=== PATIENT | female | born 1945 | race Caucasian/White ===

== ENCOUNTER → 2018-07-07 10:05 | Outpatient (CLI) | payer MEDICARE, OTHER, SELFPAY | PROVIDERS: PCP Family Medicine; Visit Provider Orthopaedic Surgery | DX: M25.562 Pain in left knee (principal); Z53.9 Procedure and treatment not carried out, unspecified reason ==

== ENCOUNTER 2018-09-27 07:30 | Outpatient (RCR) | payer MEDICARE, OTHER, SELFPAY ==
--- NOTE | 2018-08-23 16:12 | PT.OIE ---
Current Diagnoses Urge incontinence (08/23/18) Feeling of incomplete bladder emptying (08/23/18) Provider Visit Care Team Role Provider Type Steven Flynn DO Primary Care Provider Non-Staff Specialty: Family Practice Address: [address], [place], [address] Email: Suzette Hernandez MD Attending Provider Non-Staff Specialty: Urology Address: [address], [place], [address] Email: Physical Therapy Initial Evaluation PT-OP-A Visit Information Start: 08/23/18 13:02 Freq: Status: Active Protocol: Document 08/23/18 10:00 BS (Rec: 08/23/18 15:50 BS [email or web address]) Out-Patient Physical Therapy Visit Information Visit Information Visit Type Initial Evaluation Visit Start Time 09:45 Visit Stop Time 10:30 Total Visit Minutes 45 Visit Number 1 Evaluation Information Evaluation Date 08/23/18 PT-OP-B Current Condition Start: 08/23/18 13:02 Freq: Status: Active Protocol: Document 08/23/18 10:00 BS (Rec: 08/23/18 15:50 BS [email or web address]) Current Condition History of Current Condition Onset Date 20 years ago Current Complaints leaking/urinary incontinence History of Current Condition Pt is a 73 year old female who presents with complaints of daily incontinence/leaking. Pt reports that she has had issues with urinary incontinence for around 20 years and that is has progressively worsened over the years. She reports up to 5 leakage episodes per day and currently wears depends while sleeping due to leakage. Bladder interstim device has been utilized for the last 6-9 months without any improvements, per pt report. Pt denied burning with urination but reports frequent UTIs, 3 in the past year with the latest a couple months ago. Pt states she performs self-catheterization for incomplete empyting when needed. Prior Treatments and Tests Pt reports she tried pelvic floor physical therapy greater than 10 years ago but that she did not notice an improvement in urinary incontinence. She has attempted kegals since but is not sure she is doing them correctly. Treatment Goals Patient/Caregiver Goals reduce leaking episodes, learn how to correctly perform kegals Prior Functional Status Baseline Function- ADL's Independent Baseline Function- Mobility Modified Independent Baseline Function- Gait Independent, use of R SPC Current Functional Impairments (Reported) Functional Limitations- Mobility/Gait Pt ambulates in clinic with use of R single point cane with an antalgic gait pattern and reduced step length with RLE. Pt reports she is scheduled for a L knee replacement in September. PT-OP-C Subjective Start: 08/23/18 13:02 Freq: Status: Active Protocol: Document 08/23/18 10:00 BS (Rec: 08/23/18 15:50 BS [email or web address]) Patient Questionnaires Pelvic Pain and Urgency/Frequency Patient Symptom Scale Pelvic Pain Score 2 OP-PT Pain Assessment Comments Pain Comments Pt denies pain associated with urination. Denies pelvic pain with internal assessment. PT-OP-I Pelvic Floor Start: 08/23/18 13:02 Freq: Status: Active Protocol: Document 08/23/18 10:00 BS (Rec: 08/23/18 15:50 BS [email or web address]) Pelvic Floor Assessment Urine Pelvic Floor Surgery Yes: [place] sling 2007, sling removal 2016 Urinary Symptoms Dysuria Urge Sensation Prolapse Incomplete Emptying Other Urinary Symptoms occasional difficulty initiating urine stream. Triggered voiding everytime pt drives into garage. Leakage Size Large Leakage Cause Cough Exercise Lifting Sneeze Urge Leaks Per Day 0-5 Voiding Frequency 3-6x/day Nocturia 1-2/night Urine Pad Type Maxi Pad Depends Pelvic Clock Pelvic Clock Other No tenderness with pelvic floor assessment. With kegals, posterior pelvic floor activation greatest with decreased neuromuscular activation of anterior and lateral pelvic floor musculature. Minimal levator ani activation with greatest muscle activatin of sphincteric layer. Prolapse Cystocele Grade 3 Rectocele Grade 2 Contraction Ability Voluntary Contraction Weak Voluntary Relaxation Weak Manual Muscle Testing Left 2 Manual Muscle Testing Right 2 Manual Muscle Testing Anterior 2 Manual Muscle Testing Posterior 3 Muscle Endurance (Seconds) 5 PT-OP-Q Treatments Start: 08/23/18 15:00 Freq: Status: Active Protocol: Document 08/23/18 10:00 BS (Rec: 08/23/18 15:50 BS [email or web address]) Neuro Re-Education Treatment Other Activities 1 Details Pelvic Floor Contractions: work 5 sec, relax 5 sec Reps/Duration 2x15 Comments verbal cueing for pelvic floor contraction strategies and to disengage abdominals. Self-Care/Home Management Treatment Education Other Education Pt provided education regarding correct technique for pelvic floor/kegel exercises, urinary urge suppresion, and voiding behavioral modifications. PT-OP-T Assessment and Plan Start: 08/23/18 13:02 Freq: Status: Active Protocol: Document 08/23/18 10:00 BS (Rec: 08/23/18 15:50 BS [email or web address]) Physical Therapy Assessment Rehab Potential Rehabilitation Potential Fair Evaluation Complexity Number of Personal Factors/Comorbidities 1-2 Number of Body Systems Impaired 1-2 Clinical Presentation at Evaluation Stable Impairments Impairments Activity Tolerance Functional Activities Functional Mobility Strength Goals Three Short Term Goal (STG) Pt to be able to successfully suppress urinary urge utilizing pelvic floor contractions and diaphragmatic breathing techniques to prevent an episode of incontinence. STG Duration 4 weeks Two Short Term Goal (STG) Pt will become independent with an initial pelvic floor HEP. STG Duration 4 Chain Mender Goal (LTG) Pt will report feeling confident with pelvic floor exercises and demo proper technique without over- activation of abdominals. LTG Duration 8-10 One Impairment Urinary Frequency Short Term Goal (STG) Pt will report a reduction <5 episodes of urinary incontinence. STG Duration 4 Penitentiary Goal (LTG) Pt will be able to sleep throughout the night without urinary leakage. LTG Duration 8-10 Assessment Summary Assessment Pt presents with combination stress/urge urinary incontinence and deficits in pelvic floor muscular activation/strength impacting her ability to complete ADLs and sleep without urinary leakage. Pt benefits from skilled pelvic floor physical therapy to address the above impairments, reduce urge/ incontinence frequency, and improve pelvic floor strength. Physical Therapy Plan Frequency and Duration Frequency of Treatment 1-2x/Week Duration of Treatment 8-10weeks Plan of Care Start Date 08/23/18 Plan of Care End Date 11/01/18 Therapeutic Interventions Therapeutic Interventions Home Exercise Program Manual Therapy Neuromuscular Re-education Patient/Caregiver Education Self-Care/Home Management Soft Tissue Mobilization Therapeutic Activities Therapeutic Exercises Next Visit Focus/Plan Next Note Type Treatment Note Next Visit Plan sEMG with quick flicks and longer endurance contractions. Begin supine pelvic floor exercises.
--- NOTE | 2018-08-23 16:16 | PT.OPPOC ---
Current Diagnoses Urge incontinence (08/23/18) Feeling of incomplete bladder emptying (08/23/18) Provider Visit Care Team Role Provider Type Steven Flynn DO Primary Care Provider Non-Staff Specialty: Family Practice Address: [address] [facility] [address], [place], [address] Email: Suzette Hernandez MD Attending Provider Non-Staff Specialty: Urology Address: [address], [place], [address] Email: Plan Of Care PT-OP-T Assessment and Plan Start: 08/23/18 13:02 Freq: Status: Active Protocol: Document 08/23/18 10:00 BS (Rec: 08/23/18 15:50 BS [email or web address]) Physical Therapy Assessment Rehab Potential Rehabilitation Potential Fair Evaluation Complexity Number of Personal Factors/Comorbidities 1-2 Number of Body Systems Impaired 1-2 Clinical Presentation at Evaluation Stable Impairments Impairments Activity Tolerance Functional Activities Functional Mobility Strength Goals Three Short Term Goal (STG) Pt to be able to successfully suppress urinary urge utilizing pelvic floor contractions and diaphragmatic breathing techniques to prevent an episode of incontinence. STG Duration 4 weeks Two Short Term Goal (STG) Pt will become independent with an initial pelvic floor HEP. STG Duration 4 Programming Internship Goal (LTG) Pt will report feeling confident with pelvic floor exercises and demo proper technique without over- activation of abdominals. LTG Duration 8-10 One Impairment Urinary Frequency Short Term Goal (STG) Pt will report a reduction <5 episodes of urinary incontinence. STG Duration 4 Programming Internship Goal (LTG) Pt will be able to sleep throughout the night without urinary leakage. LTG Duration 8-10 Assessment Summary Assessment Pt presents with combination stress/urge urinary incontinence and deficits in pelvic floor muscular activation/strength impacting her ability to complete ADLs and sleep without urinary leakage. Pt benefits from skilled pelvic floor physical therapy to address the above impairments, reduce urge/ incontinence frequency, and improve pelvic floor strength. Physical Therapy Plan Frequency and Duration Frequency of Treatment 1-2x/Week Duration of Treatment 8-10weeks Plan of Care Start Date 08/23/18 Plan of Care End Date 11/01/18 Therapeutic Interventions Therapeutic Interventions Home Exercise Program Manual Therapy Neuromuscular Re-education Patient/Caregiver Education Self-Care/Home Management Soft Tissue Mobilization Therapeutic Activities Therapeutic Exercises Next Visit Focus/Plan Next Note Type Treatment Note Next Visit Plan sEMG with quick flicks and longer endurance contractions. Begin supine pelvic floor exercises. Plan of Care Dates Plan of Care Start Date 08/23/18 Plan of Care End Date 11/01/18 Please Sign and Return: I have reviewed this Plan of Care and certify that the skilled therapy services above are required to meet the patient?s needs. Physician Signature Date Printed Name and Credentials Clinical Instructor Signature Printed Name and Credentials
--- NOTE | 2018-09-06 13:06 | PT.OTN ---
Current Diagnoses Urge incontinence (09/06/18) Feeling of incomplete bladder emptying (09/06/18) Physical Therapy Treatment Note PT-OP-A Visit Information Start: 08/23/18 13:02 Freq: Status: Active Protocol: Document 09/06/18 09:45 AMB (Rec: 09/06/18 13:06 AMB [email or web address]) Out-Patient Physical Therapy Visit Information Visit Information Visit Type Treatment Note Visit Start Time 09:45 Visit Stop Time 10:30 Total Visit Minutes 45 Visit Number 2 PT-OP-B Current Condition Start: 08/23/18 13:02 Freq: Status: Active Protocol: Document 08/23/18 10:00 BS (Rec: 08/23/18 15:50 BS [email or web address]) Current Condition History of Current Condition Onset Date 20 years ago Current Complaints leaking/urinary incontinence History of Current Condition Pt is a 73 year old female who presents with complaints of daily incontinence/leaking. Pt reports that she has had issues with urinary incontinence for around 20 years and that is has progressively worsened over the years. She reports up to 5 leakage episodes per day and currently wears depends while sleeping due to leakage. Bladder interstim device has been utilized for the last 6-9 months without any improvements, per pt report. Pt denied burning with urination but reports frequent UTIs, 3 in the past year with the latest a couple months ago. Pt states she performs self-catheterization for incomplete empyting when needed. Prior Treatments and Tests Pt reports she tried pelvic floor physical therapy greater than 10 years ago but that she did not notice an improvement in urinary incontinence. She has attempted kegals since but is not sure she is doing them correctly. Treatment Goals Patient/Caregiver Goals reduce leaking episodes, learn how to correctly perform kegals Prior Functional Status Baseline Function- ADL's Independent Baseline Function- Mobility Modified Independent Baseline Function- Gait Independent, use of R SPC Current Functional Impairments (Reported) Functional Limitations- Mobility/Gait Pt ambulates in clinic with use of R single point cane with an antalgic gait pattern and reduced step length with RLE. Pt reports she is scheduled for a L knee replacement in September. PT-OP-C Subjective Start: 08/23/18 13:02 Freq: Status: Active Protocol: Document 09/06/18 09:45 AMB (Rec: 09/06/18 13:06 AMB [email or web address]) OP-PT Subjective Patient Comments Patient Comments Nikki reports she has been trying to do the exercises, thinking about which muscles to use to help. The interstim device is still off. She has not been self cathing, but might try to make sure that there isn't too much residual. Getting knee replacement in a little over 2 weeks. PT-OP-I Pelvic Floor Start: 08/23/18 13:02 Freq: Status: Active Protocol: Document 08/23/18 10:00 BS (Rec: 08/23/18 15:50 BS [email or web address]) Pelvic Floor Assessment Urine Pelvic Floor Surgery Yes: [place] sling 2007, sling removal 2016 Urinary Symptoms Dysuria Urge Sensation Prolapse Incomplete Emptying Other Urinary Symptoms occasional difficulty initiating urine stream. Triggered voiding everytime pt drives into garage. Leakage Size Large Leakage Cause Cough Exercise Lifting Sneeze Urge Leaks Per Day 0-5 Voiding Frequency 3-6x/day Nocturia 1-2/night Urine Pad Type Maxi Pad Depends Pelvic Clock Pelvic Clock Other No tenderness with pelvic floor assessment. With kegals, posterior pelvic floor activation greatest with decreased neuromuscular activation of anterior and lateral pelvic floor musculature. Minimal levator ani activation with greatest muscle activatin of sphincteric layer. Prolapse Cystocele Grade 3 Rectocele Grade 2 Contraction Ability Voluntary Contraction Weak Voluntary Relaxation Weak Manual Muscle Testing Left 2 Manual Muscle Testing Right 2 Manual Muscle Testing Anterior 2 Manual Muscle Testing Posterior 3 Muscle Endurance (Seconds) 5 PT-OP-Q Treatments Start: 08/23/18 15:00 Freq: Status: Active Protocol: Document 09/06/18 09:45 AMB (Rec: 09/06/18 13:06 AMB [email or web address]) Therapeutic Exercises Supine Exercises 1 Supine Exercise Name hip add with PF contract Resistance ball Comments hooklying Neuro Re-Education Treatment Other Activities 3 Details sEMG with quick contract and 10 sec hold Comments 25 reps quick contract, 20 for long holds 2 Details PF contract with NMES 10 sec hold Comments 10 reps PT-OP-T Assessment and Plan Start: 08/23/18 13:02 Freq: Status: Active Protocol: Document 09/06/18 09:45 AMB (Rec: 09/06/18 13:06 AMB [email or web address]) Physical Therapy Assessment Assessment Summary Assessment Nikki has better buy in today with pelvic floor exercises, although the urge component to her incontinence is difficult , as driving into her garage is a large trigger for her. Physical Therapy Plan Next Visit Focus/Plan Next Note Type Treatment Note Next Visit Plan Progress to seated as able. Continue urge education.
--- NOTE | 2018-09-13 16:21 | PT.OTN ---
Current Diagnoses Urge incontinence (09/13/18) Feeling of incomplete bladder emptying (09/13/18) Physical Therapy Treatment Note PT-OP-A Visit Information Start: 08/23/18 13:02 Freq: Status: Active Protocol: Document 09/13/18 10:35 BS (Rec: 09/13/18 10:22 BS [email or web address]) Out-Patient Physical Therapy Visit Information Visit Information Visit Type Treatment Note Visit Start Time 09:50 Visit Stop Time 10:30 Total Visit Minutes 40 Visit Number 3 PT-OP-B Current Condition Start: 08/23/18 13:02 Freq: Status: Active Protocol: Document 08/23/18 10:00 BS (Rec: 08/23/18 15:50 BS [email or web address]) Current Condition History of Current Condition Onset Date 20 years ago Current Complaints leaking/urinary incontinence History of Current Condition Pt is a 73 year old female who presents with complaints of daily incontinence/leaking. Pt reports that she has had issues with urinary incontinence for around 20 years and that is has progressively worsened over the years. She reports up to 5 leakage episodes per day and currently wears depends while sleeping due to leakage. Bladder interstim device has been utilized for the last 6-9 months without any improvements, per pt report. Pt denied burning with urination but reports frequent UTIs, 3 in the past year with the latest a couple months ago. Pt states she performs self-catheterization for incomplete empyting when needed. Prior Treatments and Tests Pt reports she tried pelvic floor physical therapy greater than 10 years ago but that she did not notice an improvement in urinary incontinence. She has attempted kegals since but is not sure she is doing them correctly. Treatment Goals Patient/Caregiver Goals reduce leaking episodes, learn how to correctly perform kegals Prior Functional Status Baseline Function- ADL's Independent Baseline Function- Mobility Modified Independent Baseline Function- Gait Independent, use of R SPC Current Functional Impairments (Reported) Functional Limitations- Mobility/Gait Pt ambulates in clinic with use of R single point cane with an antalgic gait pattern and reduced step length with RLE. Pt reports she is scheduled for a L knee replacement in September. PT-OP-C Subjective Start: 08/23/18 13:02 Freq: Status: Active Protocol: Document 09/13/18 10:35 BS (Rec: 09/13/18 10:22 BS [id number]) OP-PT Subjective Patient Comments Patient Comments Pt states that pulling into garage continues to be a trigger and she has been trying to void before leaving driving home. She has been doing exercises once per day. PT-OP-I Pelvic Floor Start: 08/23/18 13:02 Freq: Status: Active Protocol: Document 08/23/18 10:00 BS (Rec: 08/23/18 15:50 BS [email or web address]) Pelvic Floor Assessment Urine Pelvic Floor Surgery Yes: [place] sling 2007, sling removal 2016 Urinary Symptoms Dysuria Urge Sensation Prolapse Incomplete Emptying Other Urinary Symptoms occasional difficulty initiating urine stream. Triggered voiding everytime pt drives into garage. Leakage Size Large Leakage Cause Cough Exercise Lifting Sneeze Urge Leaks Per Day 0-5 Voiding Frequency 3-6x/day Nocturia 1-2/night Urine Pad Type Maxi Pad Depends Pelvic Clock Pelvic Clock Other No tenderness with pelvic floor assessment. With kegals, posterior pelvic floor activation greatest with decreased neuromuscular activation of anterior and lateral pelvic floor musculature. Minimal levator ani activation with greatest muscle activatin of sphincteric layer. Prolapse Cystocele Grade 3 Rectocele Grade 2 Contraction Ability Voluntary Contraction Weak Voluntary Relaxation Weak Manual Muscle Testing Left 2 Manual Muscle Testing Right 2 Manual Muscle Testing Anterior 2 Manual Muscle Testing Posterior 3 Muscle Endurance (Seconds) 5 PT-OP-Q Treatments Start: 08/23/18 15:00 Freq: Status: Active Protocol: Document 09/13/18 10:35 BS (Rec: 09/13/18 16:17 BS [email or web address]) Therapeutic Exercises Supine Exercises 1 Supine Exercise Name hip add with PF contract Resistance ball between knees Reps/Minutes 2x12 Comments hooklying Neuro Re-Education Treatment Other Activities 3 Details Quick flicks, 5W 10R Comments 2x15 quick flicks 1x15, 1x20 5sec contract, 10 sec relax Seated no sEMG today. Self-Care/Home Management Treatment Education Other Education urge supression techniques and scheduled voiding. PT-OP-T Assessment and Plan Start: 08/23/18 13:02 Freq: Status: Active Protocol: Document 09/13/18 10:35 BS (Rec: 09/13/18 10:22 BS [id number]) Physical Therapy Assessment Assessment Summary Assessment Pt forgot to bring sensor today so pelvic floor exercises completed without use of biofeedback. Pt tolerated exercises well in sitting position but continues to have difficulty with long hold (5sec) pelvic contractions. Physical Therapy Plan Next Visit Focus/Plan Next Note Type Treatment Note Next Visit Plan Continue with quick flicks and long hold pelvic contractions in sitting. Focus on endurance contractions.
--- NOTE | 2018-09-20 09:54 | PT.OTN ---
Current Diagnoses Urge incontinence (09/20/18) Feeling of incomplete bladder emptying (09/20/18) Physical Therapy Treatment Note PT-OP-A Visit Information Start: 08/23/18 13:02 Freq: Status: Active Protocol: Document 09/20/18 09:48 BS (Rec: 09/20/18 09:07 BS [id number]) Out-Patient Physical Therapy Visit Information Visit Information Visit Type Treatment Note Visit Start Time 09:00 Visit Stop Time 09:45 Total Visit Minutes 45 Visit Number 4 PT-OP-B Current Condition Start: 08/23/18 13:02 Freq: Status: Active Protocol: Document 08/23/18 10:00 BS (Rec: 08/23/18 15:50 BS [id number]) Current Condition History of Current Condition Onset Date 20 years ago Current Complaints leaking/urinary incontinence History of Current Condition Pt is a 73 year old female who presents with complaints of daily incontinence/leaking. Pt reports that she has had issues with urinary incontinence for around 20 years and that is has progressively worsened over the years. She reports up to 5 leakage episodes per day and currently wears depends while sleeping due to leakage. Bladder interstim device has been utilized for the last 6-9 months without any improvements, per pt report. Pt denied burning with urination but reports frequent UTIs, 3 in the past year with the latest a couple months ago. Pt states she performs self-catheterization for incomplete empyting when needed. Prior Treatments and Tests Pt reports she tried pelvic floor physical therapy greater than 10 years ago but that she did not notice an improvement in urinary incontinence. She has attempted kegals since but is not sure she is doing them correctly. Treatment Goals Patient/Caregiver Goals reduce leaking episodes, learn how to correctly perform kegals Prior Functional Status Baseline Function- ADL's Independent Baseline Function- Mobility Modified Independent Baseline Function- Gait Independent, use of R SPC Current Functional Impairments (Reported) Functional Limitations- Mobility/Gait Pt ambulates in clinic with use of R single point cane with an antalgic gait pattern and reduced step length with RLE. Pt reports she is scheduled for a L knee replacement in September. PT-OP-C Subjective Start: 08/23/18 13:02 Freq: Status: Active Protocol: Document 09/20/18 09:48 BS (Rec: 09/20/18 09:07 BS [id number]) OP-PT Subjective Patient Comments Patient Comments Pt admits that she hasn't been consistent with HEP this last week as she was busy with a conference. She states she is discouraged with progress and continues to have urinary incontinence during the night. She wants to know of other options or healthcare providers that may be able to help her. PT-OP-I Pelvic Floor Start: 08/23/18 13:02 Freq: Status: Active Protocol: Document 08/23/18 10:00 BS (Rec: 08/23/18 15:50 BS [id number]) Pelvic Floor Assessment Urine Pelvic Floor Surgery Yes: [place] sling 2007, sling removal 2016 Urinary Symptoms Dysuria Urge Sensation Prolapse Incomplete Emptying Other Urinary Symptoms occasional difficulty initiating urine stream. Triggered voiding everytime pt drives into garage. Leakage Size Large Leakage Cause Cough Exercise Lifting Sneeze Urge Leaks Per Day 0-5 Voiding Frequency 3-6x/day Nocturia 1-2/night Urine Pad Type Maxi Pad Depends Pelvic Clock Pelvic Clock Other No tenderness with pelvic floor assessment. With kegals, posterior pelvic floor activation greatest with decreased neuromuscular activation of anterior and lateral pelvic floor musculature. Minimal levator ani activation with greatest muscle activatin of sphincteric layer. Prolapse Cystocele Grade 3 Rectocele Grade 2 Contraction Ability Voluntary Contraction Weak Voluntary Relaxation Weak Manual Muscle Testing Left 2 Manual Muscle Testing Right 2 Manual Muscle Testing Anterior 2 Manual Muscle Testing Posterior 3 Muscle Endurance (Seconds) 5 PT-OP-Q Treatments Start: 08/23/18 15:00 Freq: Status: Active Protocol: Document 09/20/18 09:48 BS (Rec: 09/20/18 09:07 BS [id number]) Therapeutic Exercises Supine Exercises 1 Supine Exercise Name Hip add with PF contraction Resistance ball between knees Reps/Minutes 3x12 each Comments Sitting today Neuro Re-Education Treatment Other Activities 3 Details Quick flicks, endurance Comments x15 5W, 10R x10 10W, 10R 2 trials to fatigue, x30s & x33 sec x5 quick flicks in standing Seated no sEMG today. Self-Care/Home Management Treatment Education Other Education prognosis with PT, educated on options to see gynocologist for further evaluation of incontinence and prolapse. PT-OP-T Assessment and Plan Start: 08/23/18 13:02 Freq: Status: Active Protocol: Document 09/20/18 09:48 BS (Rec: 09/20/18 09:07 BS [id number]) Physical Therapy Assessment Assessment Summary Assessment Pt with questions regarding expected progress with physical therapy and other options to consider. Spent a lot of time discussing importance of HEP and encouraged to see gynocologist for prolapse. Physical Therapy Plan Therapeutic Interventions Therapeutic Interventions Home Exercise Program Manual Therapy Neuromuscular Re-education Patient/Caregiver Education Self-Care/Home Management Soft Tissue Mobilization Therapeutic Activities Therapeutic Exercises Next Visit Focus/Plan Next Note Type Treatment Note Next Visit Plan Continue with pelvic floor strengthening, focusing on endurance. Encourage pt to be consistent with HEP.
--- NOTE | 2018-09-27 11:44 | PT.OTN ---
Current Diagnoses Urge incontinence (09/27/18) Feeling of incomplete bladder emptying (09/27/18) Physical Therapy Treatment Note PT-OP-A Visit Information Start: 08/23/18 13:02 Freq: Status: Active Protocol: Document 09/27/18 07:41 BS (Rec: 09/27/18 07:46 BS [id number]) Out-Patient Physical Therapy Visit Information Visit Information Visit Type Treatment Note Visit Start Time 07:37 Visit Stop Time 08:15 Total Visit Minutes 38 Visit Number 5 PT-OP-B Current Condition Start: 08/23/18 13:02 Freq: Status: Active Protocol: Document 08/23/18 10:00 BS (Rec: 08/23/18 15:50 BS [id number]) Current Condition History of Current Condition Onset Date 20 years ago Current Complaints leaking/urinary incontinence History of Current Condition Pt is a 73 year old female who presents with complaints of daily incontinence/leaking. Pt reports that she has had issues with urinary incontinence for around 20 years and that is has progressively worsened over the years. She reports up to 5 leakage episodes per day and currently wears depends while sleeping due to leakage. Bladder interstim device has been utilized for the last 6-9 months without any improvements, per pt report. Pt denied burning with urination but reports frequent UTIs, 3 in the past year with the latest a couple months ago. Pt states she performs self-catheterization for incomplete empyting when needed. Prior Treatments and Tests Pt reports she tried pelvic floor physical therapy greater than 10 years ago but that she did not notice an improvement in urinary incontinence. She has attempted kegals since but is not sure she is doing them correctly. Treatment Goals Patient/Caregiver Goals reduce leaking episodes, learn how to correctly perform kegals Prior Functional Status Baseline Function- ADL's Independent Baseline Function- Mobility Modified Independent Baseline Function- Gait Independent, use of R SPC Current Functional Impairments (Reported) Functional Limitations- Mobility/Gait Pt ambulates in clinic with use of R single point cane with an antalgic gait pattern and reduced step length with RLE. Pt reports she is scheduled for a L knee replacement in September. PT-OP-C Subjective Start: 08/23/18 13:02 Freq: Status: Active Protocol: Document 09/27/18 07:41 BS (Rec: 09/27/18 07:46 BS [id number]) OP-PT Subjective Patient Comments Patient Comments Pt states that she is doing HEP at least 1x/day. Has knee surgery tomorrow and will have bedside commode at home. PT-OP-I Pelvic Floor Start: 08/23/18 13:02 Freq: Status: Active Protocol: Document 08/23/18 10:00 BS (Rec: 08/23/18 15:50 BS [id number]) Pelvic Floor Assessment Urine Pelvic Floor Surgery Yes: [place] sling 2007, sling removal 2016 Urinary Symptoms Dysuria Urge Sensation Prolapse Incomplete Emptying Other Urinary Symptoms occasional difficulty initiating urine stream. Triggered voiding everytime pt drives into garage. Leakage Size Large Leakage Cause Cough Exercise Lifting Sneeze Urge Leaks Per Day 0-5 Voiding Frequency 3-6x/day Nocturia 1-2/night Urine Pad Type Maxi Pad Depends Pelvic Clock Pelvic Clock Other No tenderness with pelvic floor assessment. With kegals, posterior pelvic floor activation greatest with decreased neuromuscular activation of anterior and lateral pelvic floor musculature. Minimal levator ani activation with greatest muscle activatin of sphincteric layer. Prolapse Cystocele Grade 3 Rectocele Grade 2 Contraction Ability Voluntary Contraction Weak Voluntary Relaxation Weak Manual Muscle Testing Left 2 Manual Muscle Testing Right 2 Manual Muscle Testing Anterior 2 Manual Muscle Testing Posterior 3 Muscle Endurance (Seconds) 5 PT-OP-Q Treatments Start: 08/23/18 15:00 Freq: Status: Active Protocol: Document 09/27/18 07:41 BS (Rec: 09/27/18 08:17 BS [id number]) Neuro Re-Education Treatment Other Activities 3 Details Quick flicks, endurance Reps/Duration sEMG Comments 2x15 5W, 10R 2x12 10W, 10R x20 quick flicks Max: 5.2 In supine and sitting today. 2 Details Roll in Comments small ball between knees. x12 with PF contraction. More fatigued today. PT-OP-T Assessment and Plan Start: 08/23/18 13:02 Freq: Status: Active Protocol: Document 09/27/18 07:41 BS (Rec: 09/27/18 08:30 BS [id number]) Physical Therapy Assessment Assessment Summary Assessment Pt tolerated exercises well today, she was a little more fatigued than usual this morning. She will be having knee replacement tomorrow and has plan to return to PT for pelvic floor strengthening in October. She is motivated to do exercises on her own. Physical Therapy Plan Next Visit Focus/Plan Next Note Type Treatment Note Next Visit Plan Asess pelvic floor strength to assess progress made. Continue with progression as able. Ask about incontinence during knee rehab.
--- NOTE | 2018-11-04 15:44 | PT.OPDS ---
Current Diagnoses Urge incontinence (09/27/18) Feeling of incomplete bladder emptying (09/27/18) Provider Visit Care Team Role Provider Type Steven Flynn DO Primary Care Provider Non-Staff Specialty: Family Practice Address: [address], [place], [address] Email: Suzette Hernandez MD Attending Provider Non-Staff Specialty: Urology Address: [address], [place], [address] Email: Visit Number Visit Number 5 Discharge Summary PT-OP-B Current Condition Start: 08/23/18 13:02 Freq: Status: Active Protocol: Document 08/23/18 10:00 BS (Rec: 08/23/18 15:50 BS [id number]) Current Condition History of Current Condition Onset Date 20 years ago Current Complaints leaking/urinary incontinence History of Current Condition Pt is a 73 year old female who presents with complaints of daily incontinence/leaking. Pt reports that she has had issues with urinary incontinence for around 20 years and that is has progressively worsened over the years. She reports up to 5 leakage episodes per day and currently wears depends while sleeping due to leakage. Bladder interstim device has been utilized for the last 6-9 months without any improvements, per pt report. Pt denied burning with urination but reports frequent UTIs, 3 in the past year with the latest a couple months ago. Pt states she performs self-catheterization for incomplete empyting when needed. Prior Treatments and Tests Pt reports she tried pelvic floor physical therapy greater than 10 years ago but that she did not notice an improvement in urinary incontinence. She has attempted kegals since but is not sure she is doing them correctly. Treatment Goals Patient/Caregiver Goals reduce leaking episodes, learn how to correctly perform kegals Prior Functional Status Baseline Function- ADL's Independent Baseline Function- Mobility Modified Independent Baseline Function- Gait Independent, use of R SPC Current Functional Impairments (Reported) Functional Limitations- Mobility/Gait Pt ambulates in clinic with use of R single point cane with an antalgic gait pattern and reduced step length with RLE. Pt reports she is scheduled for a L knee replacement in September. PT-OP-C Subjective Start: 08/23/18 13:02 Freq: Status: Active Protocol: Document 09/27/18 07:41 BS (Rec: 09/27/18 07:46 BS [id number]) OP-PT Subjective Patient Comments Patient Comments Pt states that she is doing HEP at least 1x/day. Has knee surgery tomorrow and will have bedside commode at home. PT-OP-I Pelvic Floor Start: 08/23/18 13:02 Freq: Status: Active Protocol: Document 08/23/18 10:00 BS (Rec: 08/23/18 15:50 BS [id number]) Pelvic Floor Assessment Urine Pelvic Floor Surgery Yes: [place] sling 2007, sling removal 2016 Urinary Symptoms Dysuria Urge Sensation Prolapse Incomplete Emptying Other Urinary Symptoms occasional difficulty initiating urine stream. Triggered voiding everytime pt drives into garage. Leakage Size Large Leakage Cause Cough Exercise Lifting Sneeze Urge Leaks Per Day 0-5 Voiding Frequency 3-6x/day Nocturia 1-2/night Urine Pad Type Maxi Pad Depends Pelvic Clock Pelvic Clock Other No tenderness with pelvic floor assessment. With kegals, posterior pelvic floor activation greatest with decreased neuromuscular activation of anterior and lateral pelvic floor musculature. Minimal levator ani activation with greatest muscle activatin of sphincteric layer. Prolapse Cystocele Grade 3 Rectocele Grade 2 Contraction Ability Voluntary Contraction Weak Voluntary Relaxation Weak Manual Muscle Testing Left 2 Manual Muscle Testing Right 2 Manual Muscle Testing Anterior 2 Manual Muscle Testing Posterior 3 Muscle Endurance (Seconds) 5 PT-OP-T Assessment and Plan Start: 08/23/18 13:02 Freq: Status: Active Protocol: Document 11/01/18 09:00 AMB (Rec: 11/01/18 09:06 AMB [id number]) Physical Therapy Assessment Goals Three Short Term Goal (STG) Pt to be able to successfully suppress urinary urge utilizing pelvic floor contractions and diaphragmatic breathing techniques to prevent an episode of incontinence. STG Duration NOT MET Two Short Term Goal (STG) Pt will become independent with an initial pelvic floor HEP. STG Duration MET Travel Specialist Goal (LTG) Pt will report feeling confident with pelvic floor exercises and demo proper technique without over- activation of abdominals. LTG Duration PROGRESS MADE One Impairment Urinary Frequency Short Term Goal (STG) Pt will report a reduction <5 episodes of urinary incontinence. STG Duration NOT MET Group Home Goal (LTG) Pt will be able to sleep throughout the night without urinary leakage. LTG Duration NOT MET Assessment Summary Assessment pt called and wanted to discharge from PT. She feels like she is not really progressing. At her last visit she was continuing to have symptoms. She was able to do some strengthening exercises. Physical Therapy Plan Discharge Physical Therapy Discharge Reasons Patient Request
== END 2018-11-04 17:36 ==
LOC: PHYS 07:30
PROVIDERS: PCP Family Medicine; Visit Provider Urology
DX: N39.41 Urge incontinence (principal); R39.14 Feeling of incomplete bladder emptying
CPT/HCPCS: 97110; 97112; 97161; 97535

== ENCOUNTER 2018-09-28 09:51 | Inpatient (IN) | payer MEDICARE, OTHER, SELFPAY ==
[2018-09-14 11:47] VITALS: BMI 33.0
[2018-09-28] VITALS (13 sets, daily range): BP systolic 122–145; BP diastolic 62–97; PULSE 82–99; RESP 10–18; TEMP 35.8–36.9; O2SAT 95–100; BMI 32.4
--- NOTE | 2018-09-28 09:40 | DI.RAD.S_ITS ---
PROCEDURE: XR KNEE LT 1TO2V INDICATIONS: prosthesis placement TECHNIQUE: 2 view(s) of the knee acquired. COMPARISON: None. FINDINGS: Bones: Patient is status post knee joint arthroplasty. Hardware components are in expected positions. Visualized bony structures are intact. Soft tissues: Overlying postoperative changes are noted. IMPRESSION: Expected postsurgical change for left knee arthroplasty. Dictated by: Noemi Santiago MD, PhD on 09/28/2018 at 16:58 Approved by: Noemi Santiago MD, PhD on 09/28/2018 at 16:59
[2018-09-28] MEDS: ACETAMINOPHEN 325 MG TABLET 975 MG PO ×2 (10:43→22:02)
[2018-09-28] MEDS: CELECOXIB 200 MG CAPSULE PO (10:43)
[2018-09-28] MEDS: PREGABALIN 75 MG CAPSULE PO (10:43)
[2018-09-28] MEDS: VANCOMYCIN 1,000 MG/200 ML FROZ.PIGGY 200 MG IV (10:54)
[2018-09-28] MEDS: LACTATED RINGERS 1,000 ML 42 ML IV ×2 (12:00→14:28)
--- NOTE | 2018-09-28 12:11 | PM.PREOP ---
Pre-operative Note Interval Note History & Physical reviewed/Exam performed by Physician: Yes Changes to H&P: No
--- NOTE | 2018-09-28 12:11 | PM.OP.1 ---
Operative Date/Time/Diagnoses Date of procedure: 09/28/18 Time of procedure: 12:28 Pre-op diagnosis: left knee OA Post-op diagnosis: same Procedure & Clinicians Procedure: Left total knee replacement Same procedure as scheduled: Yes Indications: The patient has had progressively worsening left knee pain with radiographic changes consistent with arthritis. Non-operative management has failed and the patient has requested total knee replacement. The risks, benefits and alternatives to surgery were discussed with the patient prior to proceeding. Risks discussed included, but were not limited to, failure to relieve pain, stiffness, infection, nerve damage, deep venous thrombosis, pulmonary embolism, stroke, coma, heart attack, permanent paralysis and , as well as the potential need for eventual revision of the prosthetic. Surgeon: Tracey Newby Anger Control Counselor: Alis Yeboah Anesthesia Type: General and Spinal Operative Notes Findings: Severe left knee arthritis, good stability Closure Type: primary Prosthetic devices, grafts, tissues, transplants, or devices: Newby [employer] Nephew Lishaney BCS2 6 femur, 6 tibia, +10 poly, 38 oval patella Applied: drain(s) Estimated Blood Loss (mL): 250 Blood products transfused: none Tourniquet time (min): 38 Procedure in detail: The patient was seen in the pre-operative area, where the patient identified the left knee as the operative site and this was marked with my initials. The patient received pre-operative antibiotics, and was taken to the operating room and placed on the operative table in the supine position. After satisfactory anesthesia, a time lock expert out was performed. The left leg was encircled with a tourniquet about the proximal thigh, and the leg was prepared from the toes to the tourniquet with ChloroPrep in the usual fashion and draped through sterile drapes. The knee was approached through an approximately 18 cm incision centered over the patella and carried into the knee through a medial parapatellar arthrotomy. A portion of the medial and lateral meniscus was resected. Soft tissue was carefully mobilized around the patella the patella was measured with a caliper. Bone was resected from the patella and the patellar height was reconstituted with up an appropriate sized patellar component. A cover was then placed on the patella. A small amount of additional medial and lateral meniscus was resected. The distal femur was cut at 5?. A [+2] cut was used. It looked like an appropriate distal femoral cut and the cut was made without difficulty. An extramedullary guide was used for the tibial cut. 10 mm was resected off the least affected side.The tibia was prepared. The rotation was assessed. The patient was placed in extension residual medial and lateral meniscus as well as any residual bone was carefully resected. [2mm] additional tibia was resected. Hemostasis was achieved especially posteriorly. Additional local was injected into the posterior capsule. The extension gap was assessed and additional releases for gap balancing were performed as necessary. It was checked with the gap wire annealer. The femoral component was trial was placed and the notch was finished. The rotation was assessed and the appropriate size femoral guide was placed on the distal femur and finishing cuts were made. There was no evidence of notching. The anterior, posterior and chamfer cuts were then made. The posterior osteophytes and soft tissues were then removed. The posterior capsule was injected with part of a mixture of 60 ml 0.25% Marcaine mixed with 20 ml Exparel for post operative pain control. The remainder of this mixture was injected into the capsule and subcutaneous tissues during cement curing. The components were placed. Range of motion was [0-130], with good stability throughout the range. The tourniquet was inflated to 250 mm Hg. The trials were then removed, and the tibia was finished. The bone was prepared with pulsatile lavage, and dried with a sponge. Cement was applied and the final prosthetics placed. Excess cement was removed during and after cement curing. A brief Betadine soak was performed. After confirming there was no extruded cement posteriorly, the final tibial insert was placed. The knee was copiously irrigated and the tourniquet deflated. Hemostasis was obtained with the [Aquamantys system]. A drain was placed and brought out superolaterally. The capsule was closed with interrupted nonabsorbable suture. The subcutaneous layer was closed with barbed sutures, and the skin with a running 3-0 V-Lock suture and Surgical glue. An Aquacel Ag dressing was applied and the patient was taken to recovery having tolerated the procedure well. Complications: none Condition: stable Disposition: Acute Care Plan for aftercare: The patient will be maintained on a standard total knee replacement protocol with weight bearing as tolerated. The patient will receive Xarelto and sequential compression devices for DVT prophylaxis. The patient will be discharged home when safe for the home environment.
[2018-09-28] MEDS: CEFAZOLIN 2 GM/100 ML FROZ.PIGGY IV (12:52)
--- NOTE | 2018-09-28 13:10 | SUR.OPER ---
Supine on padded OR bed, head on pillow, arms secured on padded arm boards at <90 degrees abduction, legs uncrossed, safety belt at thigh, tape over blanket over lower non-operable leg.
[2018-09-28] MEDS: BUPIVACAINE 0.25% W/ EPI (PF) 10 ML VIAL 20 ML INJ (13:17)
[2018-09-28] MEDS: BUPIVACAINE LIPOSOME 266 MG/20 ML VIAL INJ (13:18)
--- NOTE | 2018-09-28 14:30 | SUR.OPER ---
Supine on padded OR bed. Pillow under head, arms secured on padded armboards <90 degree abduction. Safety belt across torso. Non-operative leg secured with tape over blanket over lower leg. Operative leg secured in DeMayo/Solo positioner. Foam padded brace at thigh of operative leg.
--- NOTE | 2018-09-28 17:06 | PC.NURSE ---
pt arrived from PACU 1654. Awake and alert, started eating dinner. denies N/V
[2018-09-28] MEDS: LACTATED RINGERS 1,000 ML 125 ML IV (17:15)
[2018-09-28] MEDS: OXYCODONE IR 5 MG TABLET PO (19:08)
--- NOTE | 2018-09-28 20:40 | PC.NURSE ---
1715-Pt arrived to room 203 from PACU via bed. Left TKA, aquacell/italo wrap CDI, HV site superior to knee drsg CDI, PP+, CMS +, wiggle toes and ankle wave ++. A/O x4, 98%RA, LA clear denies SOB. BT+, denies nausea, reg dinner provided and tolerated. 1900- UP to chair with 1PA FWW (own walker), percolone 5mg PO given for pain 3-09/01, effective. calf SCD's on, call light in reach.
[2018-09-28] MEDS: ASPIRIN EC 81 MG TABLET PO (22:03)
[2018-09-28] MEDS: CARVEDILOL 12.5 MG TABLET 37.5 MG PO (22:03)
[2018-09-28] MEDS: PRAVASTATIN 20 MG TABLET PO (22:05)
[2018-09-28] MEDS: NORTRIPTYLINE 10 MG CAPSULE 40 MG PO (22:06)
[2018-09-28] MEDS: METFORMIN HCL 500 MG TABLET PO (22:06)
[2018-09-28] MEDS: IBUPROFEN 200 MG TABLET 600 MG PO (22:06)
[2018-09-28] MEDS: ONDANSETRON 4 MG/2 ML INJ IV (22:11)
--- NOTE | 2018-09-29 00:56 | PC.NURSE ---
Addendum entered and electronically signed by Belkis Sen R.N. 09/29/18 06:36: 0600- Pt slightly hypotensive; LR still running as ordered. Denies dizziness or any symptoms. yard caller notified, no new orders at this time. Hemovac put out 180cc for my entire 8 hour shift. Original Note: 2300- POD#0 L total knee; aquasil dressing in place w/ italo bandage wrapped & ice packs in place. CMS intact distally; Hemovac drain in place. Previous RN informed this RN pt put out 250cc of sanguineous blood in 3 hrs. MD Canales aware, says to cont to monitor. Moving 1PA w/ FWW in room. VSS; on CC diet w/ some emesis noted earlier for evening shift. No nausea for this RN. LR running as ordered. 0010- 100cc out of Hemovac; will cont to monitor.
[2018-09-29] MEDS: LACTATED RINGERS 1,000 ML 125 ML IV ×2 (01:01→08:06)
[2018-09-29 05:55] VITALS: BP 91/49; PULSE 84; RESP 17; TEMP 36.3; O2SAT 96
[2018-09-29] MEDS: LEVOTHYROXINE 50 MCG TABLET PO (05:55)
[2018-09-29 06:15] VITALS: BP 70/40
[2018-09-29 06:45] VITALS: BP 82/43
[2018-09-29 06:46] LABS: Hematocrit 27.2 % (36-46); Hemoglobin 9.2 g/dL (12.0-16.0)
[2018-09-29] MEDS: SODIUM CHLORIDE 0.9% 500 ML IV (07:03)
[2018-09-29 07:48] VITALS: BP 89/67; PULSE 72; RESP 16; TEMP 36.2; O2SAT 98
[2018-09-29] MEDS: METFORMIN HCL 500 MG TABLET PO (08:03)
[2018-09-29] MEDS: ASPIRIN EC 81 MG TABLET PO (08:04)
[2018-09-29] MEDS: CHOLECALCIFEROL (VITAMIN D3) 5,000 UNIT TABLET 5000 UNIT PO (08:04)
[2018-09-29] MEDS: IBUPROFEN 200 MG TABLET 600 MG PO ×2 (08:04→14:05)
[2018-09-29] MEDS: ACETAMINOPHEN 325 MG TABLET 975 MG PO ×2 (08:04→14:05)
[2018-09-29 08:05] VITALS: BP 98/58; PULSE 76
--- NOTE | 2018-09-29 09:53 | PM.DS.1 ---
History of Present Illness Date Patient Seen: 09/29/18 Time Patient Seen: 09:54 Chief complaint: [id number] Narrative: Hospital day 2, postop day 1 following left total knee arthroplasty by Dr. Newby. Patient did develop some postoperative hypotension and near syncopal episode. Has received bolus of fluid which has helped. Blood pressure has stabilized. She does have history of ventricular tachycardia and diabetes. She has been seen by physical therapy and doing well. patient desiring to go home today. Discharge Providers Date of admission: 09/28/18 09:51 Discharge Date: 09/29/18 Primary care physician: Steven Flynn DO Consults: 09/15/18 13:25 Consult to Anesthesiology Routine Comment: Consulting Provider: Anesthesiologist Reason for consultation: Surgeon requested re: Cardiac history 09/28/18 09:40 Consult to Anesthesiology Routine Comment: Consulting Provider: Anesthesiologist Reason for consultation: Regional block for post operative pain control Has provider been notified: Yes 09/28/18 16:57 Consult to Discharge Planning Routine Comment: Consult to Physical Therapy Evaluate & Treat Comment: Physician Instructions: postop TKA protocol Consult to Respiratory Therapy Evaluate & Treat Comment: Physician Instructions: Evaluate and treat Discharge provider: Cal Benoit PA-C Summary Discharge Diagnosis: Status post left total knee arthroplasty Hospital Course: Patient brought to hospital on 09/28/2018 for above noted surgery. she remained stable orthopedically. Did have some at hypotension and near syncopal episode the night of surgery. she was given IV fluid bolus with improvement. She remained stable on postop day 1 and did well with physical therapy. Discharged home on postop day 1. Status at Discharge Cognitive/behavioral status at discharge: oriented Functional status at discharge: uses cane/walker Overall status at discharge: patient is progressing back to baseline Time Spent with Patient Less than 30 minutes Exam Vital Signs (past 8 hours): - 09/29/18 05:55 09/29/18 06:15 09/29/18 06:45 Temperature 97.3 F L Pulse Rate 84 Respiratory Rate 17 Blood Pressure 91/49 L 70/40 L 82/43 L Pulse Oximetry 96 09/29/18 07:48 09/29/18 08:05 Temperature 97.2 F L Pulse Rate 72 76 Respiratory Rate 16 Blood Pressure 89/67 L 98/58 L Pulse Oximetry 98 Oxygen Delivery Method Room Air Oxygen Flow Rate 0 Narrative Exam Narrative: Alert, oriented no acute distress sitting in chair. Legs. Surya wrap an Aquacel dressing to left knee is dry without drainage or inflammation. Mild swelling of left lower leg. No calf pain or tenderness. Good pulses distally. Objective Labs Result Diagrams: 09/29/18 06:10 Labs: Laboratory Results - last 24 hr 09/29/18 06:10 Hgb 9.2 L Hct 27.2 L Discharge Plan Discharge Plan Patient Disposition: Home Discharge comment: Discharged to home today after cleared by PT. Patient will take Xarelto x1 week postop and then changed to aspirin 81 mg 1 b.i.d.. She will also take 1 aspirin 81 mg daily while on Xarelto. She is a [facility] patient and has postoperative pain medication at home. Discharge Med Rec/Prescriptions Prescriptions: New acetaminophen 325 mg Tablet 975 mg PO TID Qty: 30 RF: 0 Xarelto 10 mg Tablet 10 mg PO DAILYCC Qty: 7 RF: 0 Continued cholecalciferol (vitamin D3) [Vitamin D3] 5,000 unit Tablet 5,000 unit PO DAILY Qty: 0 RF: 0 triamterene-hydrochlorothiazid 50 MG/25 MG capsule 1 tab PO QDAY Qty: 0 RF: 0 aspirin 81 mg Tablet,Delayed Release (Dr/Ec) 81 mg PO DAILY Qty: 0 RF: 0 calcium carbonate [Calcium 500] 500 mg calcium (1,250 mg) Tablet 1,000 mg PO DAILY Qty: 0 RF: 0 levothyroxine 50 mcg Capsule 50 mcg PO DAILY Qty: 0 RF: 0 losartan 50 mg Tablet 50 mg PO DAILY RF: 0 metformin 500 mg Tablet 500 mg PO BID RF: 0 carvedilol 25 mg Tablet 37.5 mg PO BID RF: 0 mexiletine 150 mg Capsule 150 mg PO BID RF: 0 nortriptyline 10 mg Capsule 40 mg PO BEDTIME RF: 0 pravastatin 20 mg Tablet 20 mg PO BEDTIME RF: 0 ranitidine HCl [Zantac] 150 mg Tablet 150 mg PO BID RF: 0 hydrochlorothiazide 25 mg Tablet 25 mg PO DAILY RF: 0 Discontinued ibuprofen 200 mg Tablet 600 mg PO TID RF: 0 Follow up/Referrals: Steven Flynn DO [Primary Care Provider] - Provider Discharge Instructions Diet: Diet as Tolerated Activity: Ambulate as tolerated. Use walker as needed. do range of motion of left knee as much as possible. Cold/Heat Therapy: Cold pack to left knee as needed. Skin/Wound/Dressing Care Report to your healthcare provider any signs of infection, such as:: chills, fever, night sweats, increased pain, unusual drainage and unusual redness Dressing: Keep Aquacel dressing in place until postop visit. May remove Surya wrap tomorrow. Visit Report/Discharge Packet Instructions: DI for Knee Replacement Discharge Data Primary Care Provider: Steven Flynn Attending Provider: Tracey Newby Admit Date/Time: 09/28/18 09:51 Quality VTE Deep Vein Thrombosis/Pulmonary Embolism Present on Admission: No
[2018-09-29] MEDS: OXYCODONE IR 5 MG TABLET PO (10:08)
--- NOTE | 2018-09-29 11:16 | PT.IIE ---
Current Diagnoses Unilateral primary osteoarthritis, left knee (09/28/18) Surgery Performed Operation Date: 09/28/18 11:45 Actual Procedures p Total Knee Arthroplasty(Left) - Tracey Newby MD Surgical History (Last Updated 09/14/18 @ 12:44 by Nikki Gonzalez, RN) History of arthroplasty of right knee (Acute ~2010) History of total right hip arthroplasty (Acute ~2015) Hx of eye surgery (Acute) Hx of tonsillectomy (Acute) S/P insertion of spinal cord stimulator (Acute) Medical History (Last Updated 09/15/18 @ 10:55 by Nikki Gonzalez, AMEE) Cardiomyopathy (Acute) Diabetes (Acute) Diabetic neuropathy (Acute) Edema (Acute) Factor V Leiden carrier (Acute) HLD (hyperlipidemia) (Acute) HTN (hypertension) (Acute) Hiatal hernia (Acute) History of left heart catheterization (Acute ~05/2012) Hypothyroidism (Acute) Incontinence (Acute) Migraines (Acute) Osteoarthritis (Acute) Pneumonia (Acute) Recurrent UTI (Acute) Ventricular tachycardia (Acute ~2010) Physical Therapy Inpatient Evaluation/Re-Eval M1 PT/OT-IP Prior Functional Status Start: 09/29/18 08:16 Freq: NEEDED Status: Active Protocol: Document 09/29/18 09:00 (Rec: 09/29/18 11:16 [email or web address]) Medical Review Prior Functional Status Medical History Reviewed Yes Communication No deficits noted. Able to make needs known. Mobility and Gait Pt was independent at home and community who started to use SPC occasionally since 2 months ago due to worsening knee pain. Activities of Daily Living and IADL's Independent with ADLs and IADLs with a SPC as needed. She often needed to use grocery cart for support. Pt also drives and able to manage her medication, banking and doctors appt. Social History Household Members none Living Arrangements Apartment/Condo Number of Floors (Floors) One Floor Number of Stairs To Enter/Railing? 3 inch threshold from garage to back entrance No CARLOS to front entrance Home Environment Standard Height Toilet Walk in Shower Home Equipment Front Wheel Walker Straight Cane Bedside Commode Raised Toilet Seat Without Armrests Tub Transfer Major Gifts Manager Held Shower Grab Bars Near Toilet Grab Bars In Shower Employment Status Retired Additional Social History Comment Pt lives in a ADA approved condo in [facility] by herself. Pt's dtr Reji, niece who's a RN, and son all live close by who also will be able to take turns to stay with pt temporarily to provide assistance as needed. Pt will start outpatient PT at [facility] in [facility] next thursday. Pt also had R TKA 7-8 years ago. M2 PT-IP Current Condition Start: 09/29/18 08:16 Freq: NEEDED Status: Active Protocol: Document 09/29/18 09:00 (Rec: 09/29/18 11:16 [email or web address]) Physical Therapy Current Condition Current Condition Evaluation Date 09/29/18 Treatment Diagnosis L TKA, impaired gait and activity tolerance Onset Date 09/28/18 Weight Bearing Status Weight Bearing Status Weight Bear as Tolerated M3 PT-IP Subjective Start: 09/29/18 08:16 Freq: NEEDED Status: Active Protocol: Document 09/29/18 09:00 (Rec: 09/29/18 11:16 [email or web address]) Subjective Physical Therapy Visit Type Type Initial Evaluation Visit Start Time 09:00 Visit Stop Time 09:45 Total Visit Minutes 45 Notes Pt's dtr Reji at bedside. Per RN, pt's BP has been low 70-90s/50s with O2 sat 80s% during talking/ exertion. Hemovac and italo wrap still in place. Pt also brought in personal FWW Number of ELECTRICAL SYSTEMS DESIGN ENGINEER Visits 0 Physical Therapy Visit Comments Patient Comments I feel a lot better today. Patient Goals To return home and partipate outpatient PT Therapy Pain Assessment Pain When Pain Assessed During Mobility Pain Present Pain Present Pain Reported Location Left Knee Intensity 5 Scale Used Numeric (1 - 10) Description Acute Pain Management Techniques Apply Cold Elevation Timing of Activity with Medications M4 PT-IP Mobility and Gait Start: 09/29/18 08:16 Freq: NEEDED Status: Active Protocol: Document 09/29/18 09:00 (Rec: 09/29/18 11:16 [email or web address]) PT-Bed Mobility Assessment Rolling Level of Assist Standby Assistance Supine to Sit Supine to Sit Standby Assistance Bedrails Scooting Scooting to Edge of Bed Standby Assistance PT-Transfer Assessment Sit to and From Stand Sit to and from Stand Contact Guard Assistance Use of Upper Extremities Equipment Transfer Assistive Device None Bed Rail Orthotic/Prosthetic Devices or Brace: No Transfers Transfer Destination Bed Chair Toilet Transfer Technique Stand Step Pivot Transfer Ability Level of Assist Contact Guard Assistance Use of Upper Extremities Comments Mobility Comments seated BP in bed = 94/54 BP in supine = 107/59 BP post mobility= 123/67 O2 sat before mobility = 85-94 % without NC O2 post mobility = >95% Pt was able to perform supine to long sit with bed rail for support. She then pivot to R side EOB and stood up. Pt knows to use stagger stance for sit<>stand and UE support on FWW and chair/toilet for transfers. She was also able to stand unsupport for 30 secs to pull up her brief. Pt overall was steady and safe the whole time. Gait Assessment Gait Gait Assistance Required: Contact Guard Assist Distance (Feet) 110 Able to Maintain Weight Bearing Status Yes During Gait Assistive Devices Assistive Device Gait Belt Front Wheeled Walker Orthotic/Prosthetic Devices or Brace: No Gait Deviations General Gait Pattern Antalgic Decreased Stride Length Decreased Feet Clearance Factors Limiting Gait Function Factors Limiting Gait Function Decreased Activity Tolerance Decreased Sensation Decreased Strength Limited Range of Motion Pain Comments Gait Comments Pt amb from EOB to hallway and returned bedside chair with AD CGA. Pt amb with mod antalgic step over gait on LLE . Pt c/o her pain went up to 5 /10 after gait training and requested pain med from AMEE Dodson. Pt overall was steady and safe. Stair Climbing Assessment Comments Stair Climbing Comments did not attempt PT-Balance Assessment Sitting Balance and Reactions Static Sitting Balance Ability Normal Dynamic Sitting Balance Ability Normal Standing Balance and Reactions Static Standing Balance Ability Good Dynamic Standing Balance Ability Good Device Used FWW M5 PT-IP Objective Assessments Start: 09/29/18 08:16 Freq: NEEDED Status: Active Protocol: Document 09/29/18 09:00 (Rec: 09/29/18 11:16 [email or web address]) Orientation Orientation/Cognition Level of Alertness Alert Orientation Name Age Birthday Month Date Year Day of Week Place Situation Language Function Ability No Deficits Noted Safety Awareness Understands Safety Issues Gross Range of Motion Upper Extremity ROM Assessment Within Functional Limits Lower Extremity ROM Assessment Left Impaired Impairments knee AROM 4-105 degrees Strength Upper Extremity Strength Assessment Within Functional Limits Lower Extremity Strength Assessment Left Impaired Knee 3+/5 Coordination Assessment Gross Coordination Gross Coordination WNL Sensation Assessment Sensation Gross Sensation WNL Light Touch Intact Proprioception (Position) Intact Muscle Tone Muscle Tone WNL Yes M6 PT-IP Treatment Start: 09/29/18 08:16 Freq: NEEDED Status: Active Protocol: Document 09/29/18 09:00 (Rec: 09/29/18 11:16 [email or web address]) Physical Therapy Treatment Exercises Exercises Ankle Pumps Gluteal Sets Quad Sets Heel Slides Straight Leg Raises Education Education Provided Precautions Weight Bearing Status Post-Op Packet Safety Other Treatments Other Treatment Performed standing L TKE Adjust pt's FWW to right height CG training on HEP, transfer techniques M7 PT-IP Assessment and Plan Start: 09/29/18 08:16 Freq: NEEDED Status: Active Protocol: Document 09/29/18 09:00 (Rec: 09/29/18 11:16 [email or web address]) PT Summary Assessment and Plan Potential Rehabilitation Potential Excellent Status of Condition at Evaluation Stable Summary Impairments Pain ROM Strength Balance Bed Mobility Transfers Gait Activity Tolerance Assessment Summary Pt is low complexity POD #2 L TKA. Pt's dtr Reji at bedside with pt's SPC and FWW upon assessment. Pt was able to perform bed mobility, transfers and gait training with SBA/ CGA FWW. Pt appears very steady and safe except L antalgic gait and increased pain after gait training. Pt's BP and O2 went back to baseline 123/67 and >95% after mobility and she denies any acute distress/ SOB/ lightheadness. Altought pt lives alone, pt does have a ADA safety proof condo with sufficient DME, along with her family's assistance. Pt is expected to d/c home with family assistance and outpatient PT to improve her overall mobility. Goals Bed Mobility Goal Independent Transfer Goal Standby Assistance Front Wheeled Walker Gait Goal Independent Front Wheel Walker Gait Distance 250 Other Goals amb with FWW independently Days to Meet Goals 3 Frequency of Treatment Frequency Of Treatment Twice a Day Treatment Plan Physical Therapy Treatment Plan Bed Mobility Training Transfer Training Gait Training Therapeutic Exercise Balance Retraining Post Op Education Discharge Planning Hot or Cold Pack Other Recommendations and Next Treatment bed mob, transfers, gait Focus training as los Recommendations To Nursing Amount of Assist Needed 1 Person Assist Discharge Recommendations PT Discharge Recommendations Home with Assistance Outpatient PT
[2018-09-29 11:43] VITALS: BP 94/55; PULSE 79; RESP 16; TEMP 36.7; O2SAT 100
--- NOTE | 2018-09-29 13:54 | CM.DANOTE ---
Patient is a 73 year old female who was admitted on 09/28/18 for planned Surgical procedure. Pt has MCR and for LIFE and her PCP is Dr. Steven Flynn. EMR was reviewed. Per Ortho PA, pt tolerated procedure well and likely stable for d/c home today pending final PT. Per PT, recommending safe d/c home with outpt PT when medically stable. SW met bedside with pt and adult Dtr and explained role and they confirm that the pt resides in an apartment alone in [place] but with adult Dtr and family nearby for assist when needed. Pt is mostly Independent with ADL's at baseline and drives. Pt denies any HH or SNF and preference is to d/c home today via Dtr POV and pt already has outpt PT set up near her apartment. Dtr confirms she is available for assist if needed. Plan: SW to follow for likely pt d/c home today via Dtr POV after final PT CG training. No SW needs at this time. MARITZA Leonard Discharge Planning/Care Management CM Discharge Assessment Start: 09/29/18 13:53 Freq: Status: Active Protocol: Document 09/29/18 13:53 BF (Rec: 09/29/18 13:54 BF [id number]) Discharge Planning Assessment Assigned Police Shift Commander MARITZA Hagan Advance Directives? Yes Advance Directives on File No History Provided By Patient Medical Record Has Patient been admitted in last 30 No days? Prior Living Arrangements Apartment/Condo Household Members none Type of transporation used prior to Drives own vehicle admit Independent with ADL's Yes Is patient alert and oriented? Yes Caregiver for Another No Community Services used prior to Physical Therapy admission: DME Already Rented / Owned FWW / Walker Comment Home with outpt PT Barriers to Discharge No Discharge Plan Home Community Services Physical Therapy Transportation Arrangement Local Dtr bedside and can provide transport Referrals Initiated None needed Whiteboard Updated in Patient Room with Yes name and ext. # of Police Shift Commander Review Status In Process Please Provide Date Initial DC 09/29/18 Assessment Was Performed Next Review Type Continued Stay Review Pre-Anesthesia Assessment Start: 09/14/18 11:47 Freq: Status: Active Protocol: Document 09/14/18 11:47 CAB (Rec: 09/14/18 12:44 CAB [id number]) Pre-Anesthesia Assessment PAC Comment Pt has spinal cord stimulator, will bring remote to turn off prior to surgery Patient Information Reviewed Via Phone Assessment Assessment Completed With Patient Diagnostic Results BMP/CMP CBC EKG Primary Care Provider Steven Flynn Seen Specialist in Last 12 Months Yes Specialist Seen Ceramics Machine Operator Orthopedist Urologist Primary Language Malagasy Merchandising Coordinator Required No Height 180.34 cm Weight 107.501 kg Body Mass Index (BMI) 33.0 Hearing Ability Normal Visual Assist Contacts Glasses Dentition Type Teeth, Natural Present Barriers to Learning None Other Aids No Hx Anesthesia Reactions No Hx Family Anesthesia Reaction No Hx Malignant Hyperthermia No Hx Blood Transfusions Yes: r/t RT TKA 2010 Hx Blood Transfusion Reaction No Anesthesia Review Requested Yes: Surgeon requested re: Cardiac History Band Saw Operator No alcohol intake current alcohol intake frequency holidays/special occasions only Smoking Status Never smoker Substance Use Type does not use Pain Present Pain Reported Musculoskeletal Symptoms Abnormal Gait Difficulty Walking Joint Pain Numbness History of Falling (Recent or History of No ) Patient is completely paralyzed or No completely immobile Prosthesis or Orthotic Device Cane Mental Status Oriented to own ability Is patient on oxygen? No Does patient have MUSTAFA/SOB No Hx Sleep Apnea No Currently Taking a Beta Sergio Yes: Carvedilol Can You Climb a Flight of Stairs Without Yes SOB Hx Chest Pain No Hx SOB No Hx Syncope or Dizziness No Anti-Coagulant Therapy No Has a Ceramics Machine Operator Yes: Dr. Ingram Cardiac Testing No Hx Pacemaker/ICD No Pacemaker Rep Required? No Cardiac Clearance Received Yes Diet Type At Home Regular dysphagia No Bladder Pattern Incontinent Nocturia Retention Urinary Catheter Present No Hx Urinary Self Catheterization No Comment Hx recurrent UTIs Diabetes Yes: Pt does not check blood sugars at home HgbA1C 6.9 Date 06/25/18 Patient No Lactating No Hx Drug Resistant Organism No Presence of External or Internal Medical Yes: Spinal cord stimulator, Devices right knee, right hip prosthesis Comment Pt will bring remote to turn off spinal cord stimulator dos Have you traveled outside the [place] in the last 30 days? Marital Status / Lives With none Prior Living Arrangements Apartment/Condo Number of Floors (Floors) One Floor Support System Child/Children Family Does the Patient Have Assistance After Yes Surgery Patient Discharge Plan Description Return Home Comment Pt advised 1 night length of stay per surgeon's office Feels Safe in Current Environment Yes Been Physically Hurt or Threatened By a No Person in Current Environment Do you have thoughts of harming yourself None or others? Are you currently considering suicide? No Do you have a plan to hurt yourself or No Plan others? Do You Have Any Spiritual Beliefs That No May Affect Your HC Choices? Do You Have Any Cultural Practices That No May Affect Your HC Choices? Spiritual Referral None Comment Confucianist Who Can We Speak to About Patient's Care Family, friends Identifying Code for Release of Patient Declines to issue Information Health Care Proxy/Next of Kin Lisset (daughter) Health Care Proxy Emergency Contact Name Lisset (daughter) Emergency Contact Advance Directives? Yes Advance Directives on File No Requested Patient Bring Advanced Yes Directives DOS PAC Instructions Do not shave/clip surgical site Durable medical equipment Medications to take/avoid Nasal antibiotic No ETOH/petroleum product on skin DOS NPO Post-op transportation Pre-surgical wash Sensory aids Sturdy shoes/comfortable clothes Do not bring valuables and remove jewelry
--- NOTE | 2018-09-29 14:07 | PT.IPTN ---
Current Diagnoses Unilateral primary osteoarthritis, left knee (09/28/18) Surgery Performed Operation Date: 09/28/18 11:45 Actual Procedures p Total Knee Arthroplasty(Left) - Tracey Newby MD Physical Therapy Treatment Note M2 PT-IP Current Condition Start: 09/29/18 08:16 Freq: NEEDED Status: Active Protocol: Document 09/29/18 09:00 HH (Rec: 09/29/18 11:16 HH [email or web address]) Physical Therapy Current Condition Current Condition Evaluation Date 09/29/18 Treatment Diagnosis L TKA, impaired gait and activity tolerance Onset Date 09/28/18 Weight Bearing Status Weight Bearing Status Weight Bear as Tolerated M3 PT-IP Subjective Start: 09/29/18 08:16 Freq: NEEDED Status: Active Protocol: Document 09/29/18 13:40 GGD (Rec: 09/29/18 14:07 GGD [email or web address]) Subjective Physical Therapy Visit Type Type Treatment Note Visit Start Time 13:10 Visit Stop Time 13:40 Total Visit Minutes 30 Number of WHITE GOODS APPLIANCE TECH Visits 1 Physical Therapy Visit Comments Patient Comments Pt states she feels ready to go home. Therapy Pain Assessment Pain When Pain Assessed During Mobility Pain Present Pain Present Pain Reported Location Left Knee Intensity 5 Scale Used Numeric (1 - 10) M4 PT-IP Mobility and Gait Start: 09/29/18 08:16 Freq: NEEDED Status: Active Protocol: Document 09/29/18 13:40 GGD (Rec: 09/29/18 14:07 GGD [email or web address]) PT-Bed Mobility Assessment Rolling Level of Assist Standby Assistance Supine to Sit Supine to Sit Standby Assistance Scooting Scooting to Edge of Bed Standby Assistance PT-Transfer Assessment Sit to and From Stand Sit to and from Stand Contact Guard Assistance 1 Person Assistance Use of Upper Extremities Equipment Transfer Assistive Device Front Wheeled Walker Transfers Transfer Destination Chair Toilet Transfer Ability Level of Assist Contact Guard Assistance Use of Upper Extremities Gait Assessment Gait Gait Assistance Required: Contact Guard Assist Distance (Feet) 100 Able to Maintain Weight Bearing Status Yes During Gait Assistive Devices Assistive Device Gait Belt Front Wheeled Walker Orthotic/Prosthetic Devices or Brace: No Gait Deviations General Gait Pattern Antalgic Decreased Stride Length Decreased Feet Clearance Factors Limiting Gait Function Factors Limiting Gait Function Decreased Activity Tolerance Decreased Sensation Decreased Strength Limited Range of Motion Pain M5 PT-IP Objective Assessments Start: 09/29/18 08:16 Freq: NEEDED Status: Active Protocol: Document 09/29/18 09:00 (Rec: 09/29/18 11:16 [email or web address]) Orientation Orientation/Cognition Level of Alertness Alert Orientation Name Age Birthday Month Date Year Day of Week Place Situation Language Function Ability No Deficits Noted Safety Awareness Understands Safety Issues Gross Range of Motion Upper Extremity ROM Assessment Within Functional Limits Lower Extremity ROM Assessment Left Impaired Impairments knee AROM 4-105 degrees Strength Upper Extremity Strength Assessment Within Functional Limits Lower Extremity Strength Assessment Left Impaired Knee 3+/5 Coordination Assessment Gross Coordination Gross Coordination WNL Sensation Assessment Sensation Gross Sensation WNL Light Touch Intact Proprioception (Position) Intact Muscle Tone Muscle Tone WNL Yes M6 PT-IP Treatment Start: 09/29/18 08:16 Freq: NEEDED Status: Active Protocol: Document 09/29/18 13:40 GGD (Rec: 09/29/18 14:07 GGD [email or web address]) Physical Therapy Treatment Exercises Exercises Ankle Pumps Quad Sets Straight Leg Raises Seated Knee Flexion/Extension M7 PT-IP Assessment and Plan Start: 09/29/18 08:16 Freq: NEEDED Status: Active Protocol: Document 09/29/18 13:40 GGD (Rec: 09/29/18 14:07 GGD [email or web address]) PT Summary Assessment and Plan Summary Assessment Summary Pt improving with mobility. She was safe and stable with gait, but had heavy use of UE on FWW. She did need cues for sit to stand. Pt safe for home D/C when medically stable. Frequency of Treatment Frequency Of Treatment Twice a Day Treatment Plan Physical Therapy Treatment Plan Bed Mobility Training Transfer Training Gait Training Therapeutic Exercise Balance Retraining Post Op Education Discharge Planning Hot or Cold Pack Other Recommendations and Next Treatment bed mob, transfers, gait Focus training as los Recommendations To Nursing Amount of Assist Needed 1 Person Assist Discharge Recommendations PT Discharge Recommendations Home with Assistance Outpatient PT
--- NOTE | 2018-09-29 14:34 | PC.NURSE ---
Discharge pt states pain controlled with medications. up with FWW and 1 person asst. pt states she took all belongings with her. d/c instructions provided to pt and granddaughter. pt left in w/c to car.
== END 2018-09-29 14:25 | disposition home or self-care (01) | DRG 470 ==
PROVIDERS: Admitting Provider Orthopaedic Surgery; PCP Family Medicine; Visit Provider Orthopaedic Surgery
PROC: 0SRD0JZ Replacement of Left Knee Joint with Synthetic Substitute, Open Approach (ICD-10-PCS; CPT 27447; principal; 2018-09-28 11:45)
DX: M17.12 Unilateral primary osteoarthritis, left knee (principal); I47.2 Ventricular tachycardia; D68.51 Activated protein C resistance; Z68.41 Body mass index [BMI] 40.0-44.9, adult; I95.9 Hypotension, unspecified; E11.40 Type 2 diabetes mellitus with diabetic neuropathy, unspecified; Z96.651 Presence of right artificial knee joint; G47.33 Obstructive sleep apnea (adult) (pediatric); I10 Essential (primary) hypertension; E78.5 Hyperlipidemia, unspecified; Z79.84 Long term (current) use of oral hypoglycemic drugs; E66.01 Morbid (severe) obesity due to excess calories
CPT/HCPCS: 36415; 73560; 85014; 85018; 97116; 97161; 97530; C1776; C9290; J0690; J2250; J2274; J2405; J2704; J3010; J3370

== ENCOUNTER → 2024-03-11 12:07 | Outpatient (CLI) | payer MEDICARE, OTHER, SELFPAY ==
[2018-09-28 16:59] VITALS: BMI 32.4
--- NOTE | 2024-03-11 | DI.US.S_ITS ---
PROCEDURE: US RENAL COMPLETE INDICATIONS: INCOMPLETE EMPTYING OF BLADDER/URGE INCONT TECHNIQUE: Real-time scanning was performed of the kidneys and bladder, with image documentation. COMPARISON: None. FINDINGS: Kidneys: Kidneys are normal in size. Right kidney measures 10.7 cm long; left kidney measures 12.1 cm long. Right renal cortical thickness is 1.5 cm; left renal cortical thickness is 1.5 cm. Renal cortical echotexture is normal. No hydronephrosis or nephrolithiasis. No suspicious solid mass lesions. Bladder: Pre-void bladder volume is 110 mL. Patient was unable to void. Pre-void images demonstrate no intraluminal masses or stones. On pre-void images, the left ureteral jets are noted with color Doppler interrogation. (Of note, ureteral jets may not be detectable in up to 25% of cases due to insufficient differences in specific gravity between ureteral and bladder urine). Miscellaneous: No free pelvic fluid. Increased liver echogenicity, likely mild hepatic steatosis. IMPRESSION: Prevoid bladder volume is 110 mL. Patient was unable to void. Findings may indicate urinary retention. Dictated by: Luke Burnett M.D. on 03/14/2024 at 17:47 Approved by: Luke Burnett M.D. on 03/14/2024 at 17:49
== END ==
LOC: US 12:08
PROVIDERS: Family Provider Nurse Practitioner; PCP Family Medicine; Referring Provider Physician Assistant; Visit Provider Physician Assistant
DX: N39.41 Urge incontinence (principal); R33.9 Retention of urine, unspecified
CPT/HCPCS: 76770